=== PATIENT | female | born 1960 | race Hispanic/Latino ===

== ENCOUNTER 2025-10-04 05:57 | Inpatient (IN) | payer MEDICARE, MEDICAID ==
[2025-10-04] MEDS ORDERED: levETIRAcetam 500 MG (5 mL) VIAL ONE (06:04)
[2025-10-04 06:29] LABS: #Basophils 0.06 10x3/uL (0.0-0.2); #Eosinophils Less than 0.03 10x3/uL (0.0-0.7); #Monocytes 0.45 10x3/uL (0.11-0.59); #Neutrophils 12.41 10x3/uL (1.40-6.50); %Basophils 0.4 % (0.0-1.0); %Eosinophils 0.0 % (0.0-10.0); %Lymphocytes 7.1 % (21.0-51.0); %Monocytes 3.2 % (0.0-10.0); %Neutrophils 88.7 % (42.0-75.0); Hematocrit 33.9 % (36.0-47.0); Hemoglobin 11.1 g/dL (12.0-16.0); Mean Corpuscular Hemoglobin 31.9 pg (27.0-31.0); Mean Corpuscular Volume 97.4 fL (78.0-98.0); Platelet Count 247 10x3/uL (130-400); Red Blood Cell (RBC) Count 3.48 mill/uL (4.20-5.40); White Blood Cell (WBC) Count 14.01 10x3/uL (4.8-10.8)
[2025-10-04 06:43] LABS: ALT (SGPT) 45 U/L (Less than 34); AST (SGOT) 82 U/L (11-34); Albumin 3.3 g/dL (3.1-4.5); Alkaline Phosphatase 160 U/L (40-110); Anion Gap 17 mmol/L (10-20); BUN (Urea Nitrogen) 9 mg/dL (9.8-20.1); Bilirubin, Total 0.4 mg/dL (0.3-1.2); Calc. Creatinine Clearance 0 mL/min (70-130); Calcium 8.7 mg/dL (7.8-10.44); Carbon Dioxide 22 mmol/L (23-31); Chloride 96 mmol/L (98-107); Globulin 3.3 g/dL (2.4-3.5); Glucose 217 mg/dL (80-115); Potassium 4.7 mmol/L (3.5-5.1); Sodium 130 mmol/L (136-145)
[2025-10-04 06:46] LABS: Acetaminophen Less than 10 mcg/mL (Less than 10); Salicylate Less than 8.0 mg/dL (Less than 8.0)
[2025-10-04 06:47] LABS: CK (CPK) 26 U/L (29-168); Lipase 76 U/L (8-78)
[2025-10-04] MEDS ORDERED: Etomidate 40 MG (20 mL) VIAL ONE (06:54)
[2025-10-04] MEDS ORDERED: Rocuronium Bromide 10 MG/ML (10ML VIAL) ONE (06:54)
[2025-10-04] MEDS ORDERED: Digoxin 0.5 MG/2 ML AMP ONE (07:12)
[2025-10-04] MEDS ORDERED: Magnesium 2 GM/50 ML BAG (IN WATER) ONE (07:12)
[2025-10-04 07:28] LABS: Actual Bicarbonate (HCO3a) 24.0 mEq/L (22-28); Analyzer IN Cardio ER; Base Excess (BEa) 0.7 mEq/L (-2.0 to +3.0); CO2 Tension 33.5 mmHg (35.0-45.0); Calcium, Ionized (arterial) 1.06 mmol/L (1.12-1.30); Hematocrit-ABG 29 % (36.0-47.0); Hemoglobin (Hb) 9.8 g/dL (12.0-16.0); O2 Tension (PaO2), arterial 240.1 mmHg (> 80.0); Potassium - ABG Lab 4.08 mmol/L (3.70-5.30); pH, Arterial 7.473 (7.35-7.45)
[2025-10-04] MEDS ORDERED: Enoxaparin 60 MG (0.6 mL) SYRINGE ONE (07:32)
[2025-10-04] MEDS ORDERED: LevoFLOXacin 750 mg/D5W 150 ml Premix Bag ONE (07:37)
[2025-10-04] MEDS ORDERED: Cefepime 2 GM VIAL ONE (07:37)
[2025-10-04 07:43] LABS: Bacteria/HPF None Seen HPF (None Seen); CAUTI Indications for Culture Alt mental st,lethar; Glucose, Urine (Dipstick) 150 mg/dL (Negative); Leukocyte Negative Leu/uL (Negative); Protein, Urine (Dipstick) 20 mg/dL (Neg-Trace); RBC/HPF 0-3 HPF (0-3); Specific Gravity, Urine 1.011 (1.002-1.036); WBC/HPF 0-3 HPF (0-3)
[2025-10-04 07:44] LABS: Cocaine Metabolite Screen Negative (Negative); THC/Cannabinoid Screen Negative (Negative); Tricyclic Screen Negative (Negative); Urine Culture Reflex No No
[2025-10-04 08:10] LABS: Puncture Site Left Brachial artery
[2025-10-04] MEDS ORDERED: Ondansetron PF 4 MG/2 ML Vial IVP PRN (08:40)
[2025-10-04] MEDS: Famotidine/PF 20 mg/2ml Vial SLOW IVP SCH (10:53)
[2025-10-04] MEDS ORDERED: Ventilator Sedation Protocol 1 EACH FS SCH (11:30)
[2025-10-04] MEDS ORDERED: Propofol BOLUS 1,000 MG/100 ML VIAL IV PRN (11:45)
[2025-10-04] MEDS ORDERED: Fentanyl BOLUS 100 ML IVPB PRN (11:45)
[2025-10-04] MEDS ORDERED: Iopamidol-370 76% 500 ML MDV (1 ML CHARGE) ONE (13:38)
[2025-10-04] MEDS: levETIRAcetam 500 MG (5 mL) VIAL SLOW IVP SCH (17:57)
[2025-10-04] MEDS ORDERED: levETIRAcetam 500 MG (5 mL) VIAL SLOW IVP SCH (19:00)
[2025-10-04] MEDS: Mupirocin 1 GM TUBE NASAL DECOLONIZATION NASAL SCH (20:37)
[2025-10-05 04:44] LABS: ALT (SGPT) 24 U/L (Less than 34); AST (SGOT) 25 U/L (11-34); Albumin 2.1 g/dL (3.1-4.5); Alkaline Phosphatase 87 U/L (40-110); Anion Gap 12 mmol/L (10-20); BUN (Urea Nitrogen) 15 mg/dL (9.8-20.1); Bilirubin, Total 0.5 mg/dL (0.3-1.2); Calc. Creatinine Clearance 65 mL/min (70-130); Calcium 7.8 mg/dL (7.8-10.44); Carbon Dioxide 23 mmol/L (23-31); Chloride 104 mmol/L (98-107); Globulin 2.3 g/dL (2.4-3.5); Glucose 84 mg/dL (80-115); Potassium 3.7 mmol/L (3.5-5.1); Sodium 135 mmol/L (136-145)
[2025-10-05 06:09] LABS: #Basophils 0.03 10x3/uL (0.0-0.2); #Eosinophils 0.03 10x3/uL (0.0-0.7); #Monocytes 0.62 10x3/uL (0.11-0.59); #Neutrophils 5.46 10x3/uL (1.40-6.50); %Basophils 0.4 % (0.0-1.0); %Eosinophils 0.4 % (0.0-10.0); %Lymphocytes 14.7 % (21.0-51.0); %Monocytes 8.6 % (0.0-10.0); %Neutrophils 75.5 % (42.0-75.0); Hematocrit 24.8 % (36.0-47.0); Hemoglobin 8.1 g/dL (12.0-16.0); Mean Corpuscular Hemoglobin 31.9 pg (27.0-31.0); Mean Corpuscular Volume 97.6 fL (78.0-98.0); Platelet Count 183 10x3/uL (130-400); Red Blood Cell (RBC) Count 2.54 mill/uL (4.20-5.40); White Blood Cell (WBC) Count 7.23 10x3/uL (4.8-10.8)
[2025-10-05 06:21] LABS: ALT (SGPT) 23 U/L (Less than 34); AST (SGOT) 30 U/L (11-34); Albumin 2.2 g/dL (3.1-4.5); Alkaline Phosphatase 90 U/L (40-110); Anion Gap 11 mmol/L (10-20); BUN (Urea Nitrogen) 15 mg/dL (9.8-20.1); Bilirubin, Total 0.6 mg/dL (0.3-1.2); Calc. Creatinine Clearance 68 mL/min (70-130); Calcium 7.8 mg/dL (7.8-10.44); Carbon Dioxide 23 mmol/L (23-31); Chloride 104 mmol/L (98-107); Globulin 2.2 g/dL (2.4-3.5); Glucose 83 mg/dL (80-115); Potassium 3.8 mmol/L (3.5-5.1); Sodium 134 mmol/L (136-145)
[2025-10-05 08:12] LABS: Actual Bicarbonate (HCO3a) 24.1 mEq/L (22-28); Base Excess (BEa) 0.1 mEq/L (-2.0 to +3.0); CO2 Tension 36.1 mmHg (35.0-45.0); Calcium, Ionized (arterial) 1.12 mmol/L (1.12-1.30); Hematocrit-ABG 26 % (36.0-47.0); Hemoglobin (Hb) 8.7 g/dL (12.0-16.0); O2 Tension (PaO2), arterial 82.8 mmHg (> 80.0); Potassium - ABG Lab 3.68 mmol/L (3.70-5.30); pH, Arterial 7.442 (7.35-7.45)
[2025-10-05 08:13] LABS: Puncture Site Right Brachial art
[2025-10-05 08:14] LABS: ALV-art Gradient 157.275 mmHg (0-20)
[2025-10-05] MEDS: FLU (Fluarix Triv) 25-26 (6MOS UP)/PF 45 MCG/0.5 ML Syringe IM ONE (09:37)
[2025-10-05] MEDS: Scopolamine 1 mg/72 hour Patch TD SCH (14:48)
[2025-10-05 22:03] LABS: Influenza A by NAA Not Detected (NotDetected); Influenza B by NAA Not Detected (NotDetected); RSV by NAA Not Detected (NotDetected); SARS-CoV-2 NAA Rapid Test Not Detected (NotDetected)
[2025-10-06 04:02] LABS: #Basophils 0.03 10x3/uL (0.0-0.2); #Eosinophils 0.07 10x3/uL (0.0-0.7); #Monocytes 0.46 10x3/uL (0.11-0.59); #Neutrophils 3.25 10x3/uL (1.40-6.50); %Basophils 0.6 % (0.0-1.0); %Eosinophils 1.5 % (0.0-10.0); %Lymphocytes 18.6 % (21.0-51.0); %Monocytes 9.7 % (0.0-10.0); %Neutrophils 69.0 % (42.0-75.0); Hematocrit 23.4 % (36.0-47.0); Hemoglobin 7.9 g/dL (12.0-16.0); Mean Corpuscular Hemoglobin 32.5 pg (27.0-31.0); Mean Corpuscular Volume 96.3 fL (78.0-98.0); Platelet Count 145 10x3/uL (130-400); Red Blood Cell (RBC) Count 2.43 mill/uL (4.20-5.40); White Blood Cell (WBC) Count 4.72 10x3/uL (4.8-10.8)
[2025-10-06 04:23] LABS: Anion Gap 9 mmol/L (10-20); BUN (Urea Nitrogen) 13 mg/dL (9.8-20.1); Calc. Creatinine Clearance 93 mL/min (70-130); Calcium 8.0 mg/dL (7.8-10.44); Carbon Dioxide 23 mmol/L (23-31); Chloride 107 mmol/L (98-107); Glucose 111 mg/dL (80-115); Potassium 3.5 mmol/L (3.5-5.1); Sodium 135 mmol/L (136-145)
[2025-10-06 05:56] VITALS: BMI 23.3
[2025-10-06 06:57] LABS: Actual Bicarbonate (HCO3a) 24.0 mEq/L (22-28); Base Excess (BEa) -0.2 mEq/L (-2.0 to +3.0); CO2 Tension 37.3 mmHg (35.0-45.0); Calcium, Ionized (arterial) 1.15 mmol/L (1.12-1.30); Hematocrit-ABG 25 % (36.0-47.0); Hemoglobin (Hb) 8.5 g/dL (12.0-16.0); O2 Tension (PaO2), arterial 102.6 mmHg (> 80.0); Potassium - ABG Lab 3.63 mmol/L (3.70-5.30); pH, Arterial 7.427 (7.35-7.45)
[2025-10-06 07:06] LABS: ALV-art Gradient 135.975 mmHg (0-20); Puncture Site Right Brachial art
[2025-10-07 05:17] LABS: #Basophils Less than 0.03 10x3/uL (0.0-0.2); #Eosinophils 0.03 10x3/uL (0.0-0.7); #Monocytes 0.53 10x3/uL (0.11-0.59); #Neutrophils 3.53 10x3/uL (1.40-6.50); %Basophils 0.4 % (0.0-1.0); %Eosinophils 0.6 % (0.0-10.0); %Lymphocytes 14.3 % (21.0-51.0); %Monocytes 11.0 % (0.0-10.0); %Neutrophils 73.1 % (42.0-75.0); Hematocrit 25.0 % (36.0-47.0); Hemoglobin 8.1 g/dL (12.0-16.0); Mean Corpuscular Hemoglobin 31.3 pg (27.0-31.0); Mean Corpuscular Volume 96.5 fL (78.0-98.0); Platelet Count 147 10x3/uL (130-400); Red Blood Cell (RBC) Count 2.59 mill/uL (4.20-5.40); White Blood Cell (WBC) Count 4.83 10x3/uL (4.8-10.8)
[2025-10-07 05:20] LABS: Anion Gap 14 mmol/L (10-20); BUN (Urea Nitrogen) 8 mg/dL (9.8-20.1); Calc. Creatinine Clearance 102 mL/min (70-130); Calcium 7.9 mg/dL (7.8-10.44); Carbon Dioxide 23 mmol/L (23-31); Chloride 101 mmol/L (98-107); Glucose 72 mg/dL (80-115); Potassium 3.2 mmol/L (3.5-5.1); Sodium 135 mmol/L (136-145)
[2025-10-07] MEDS ORDERED: Electrolyte Replacement Protocol 1 EACH FS SCH (07:30)
[2025-10-07] MEDS ORDERED: PHOS-NAK 1 PKT PACK PO PRN (07:30)
[2025-10-07] MEDS ORDERED: Magnesium 2 GM/50 ML(in water) 2 GM in Premix 1 BAG IVPB PRN (07:30)
[2025-10-07] MEDS: Potassium Chloride 20 MEQ in Premix 1 BAG IVPB PRN (07:37)
[2025-10-07] MEDS: Transdermal Patch Removal TOP SCH (07:39)
[2025-10-07] MEDS: Acetaminophen/Codeine 30-300mg Tablet PO PRN (09:46)
[2025-10-08 05:36] LABS: #Basophils Less than 0.03 10x3/uL (0.0-0.2); #Eosinophils 0.06 10x3/uL (0.0-0.7); #Monocytes 0.50 10x3/uL (0.11-0.59); #Neutrophils 2.95 10x3/uL (1.40-6.50); %Basophils 0.5 % (0.0-1.0); %Eosinophils 1.4 % (0.0-10.0); %Lymphocytes 18.0 % (21.0-51.0); %Monocytes 11.5 % (0.0-10.0); %Neutrophils 68.1 % (42.0-75.0); Hematocrit 25.7 % (36.0-47.0); Hemoglobin 8.6 g/dL (12.0-16.0); Mean Corpuscular Hemoglobin 31.9 pg (27.0-31.0); Mean Corpuscular Volume 95.2 fL (78.0-98.0); Platelet Count 146 10x3/uL (130-400); Red Blood Cell (RBC) Count 2.70 mill/uL (4.20-5.40); White Blood Cell (WBC) Count 4.33 10x3/uL (4.8-10.8)
[2025-10-08 05:51] LABS: Anion Gap 11 mmol/L (10-20); BUN (Urea Nitrogen) 5 mg/dL (9.8-20.1); Calc. Creatinine Clearance 93 mL/min (70-130); Calcium 8.2 mg/dL (7.8-10.44); Carbon Dioxide 25 mmol/L (23-31); Chloride 106 mmol/L (98-107); Glucose 94 mg/dL (80-115); Potassium 3.6 mmol/L (3.5-5.1); Sodium 138 mmol/L (136-145)
[2025-10-08] MEDS ORDERED: levETIRAcetam 500 MG TAB PO SCH (09:00)
[2025-10-08] MEDS: Losartan 25 MG TAB PO SCH (09:13)
[2025-10-08 09:14] VITALS: BMI 22.9
[2025-10-08] MEDS: diphenhydrAMINE 50 MG/ML VIAL IVP SCH (12:07)
[2025-10-08] MEDS: levETIRAcetam 500 MG TAB PO SCH (17:27)
[2025-10-09 05:25] LABS: #Basophils 0.04 10x3/uL (0.0-0.2); #Eosinophils 0.08 10x3/uL (0.0-0.7); #Monocytes 0.48 10x3/uL (0.11-0.59); #Neutrophils 2.26 10x3/uL (1.40-6.50); %Basophils 1.0 % (0.0-1.0); %Eosinophils 2.0 % (0.0-10.0); %Lymphocytes 26.8 % (21.0-51.0); %Monocytes 12.2 % (0.0-10.0); %Neutrophils 57.7 % (42.0-75.0); Hematocrit 25.9 % (36.0-47.0); Hemoglobin 8.5 g/dL (12.0-16.0); Mean Corpuscular Hemoglobin 31.4 pg (27.0-31.0); Mean Corpuscular Volume 95.6 fL (78.0-98.0); Platelet Count 138 10x3/uL (130-400); Red Blood Cell (RBC) Count 2.71 mill/uL (4.20-5.40); White Blood Cell (WBC) Count 3.92 10x3/uL (4.8-10.8)
[2025-10-09 05:28] LABS: Anion Gap 12 mmol/L (10-20); BUN (Urea Nitrogen) 4 mg/dL (9.8-20.1); Calc. Creatinine Clearance 100 mL/min (70-130); Calcium 8.6 mg/dL (7.8-10.44); Carbon Dioxide 25 mmol/L (23-31); Chloride 105 mmol/L (98-107); Glucose 91 mg/dL (80-115); Potassium 3.7 mmol/L (3.5-5.1); Sodium 138 mmol/L (136-145)
[2025-10-09 08:17] VITALS: BP 170/78; TEMP 98.2
== END 2025-10-09 11:14 | disposition home or self-care (01) | DRG 100 ==
LOC: ERS 05:57 → CCU 08:30 → T4-A 10-07 15:59
PROVIDERS: ADMIT Internal Medicine; ATTEND Hospitalist
PROC: XX20X89 Monitoring of Brain Electrical Activity, Computer-aided Detection and Notification, New Technology Group 9 (ICD-10-PCS; principal; 2025-10-04)
PROC: 5A1945Z Respiratory Ventilation, 24-96 Consecutive Hours (ICD-10-PCS; 2025-10-04)
PROC: 3E03329 Introduction of Other Anti-infective into Peripheral Vein, Percutaneous Approach (ICD-10-PCS; 2025-10-04)
PROC: 3E02340 Introduction of Influenza Vaccine into Muscle, Percutaneous Approach (ICD-10-PCS; 2025-10-05)
DX: G40.901 Epilepsy, unspecified, not intractable, with status epilepticus (principal); G93.41 Metabolic encephalopathy; J69.0 Pneumonitis due to inhalation of food and vomit; J96.00 Acute respiratory failure, unspecified whether with hypoxia or hypercapnia; E87.1 Hypo-osmolality and hyponatremia; I48.91 Unspecified atrial fibrillation; Z79.899 Other long term (current) drug therapy; I10 Essential (primary) hypertension; Z98.890 Other specified postprocedural states; Z72.0 Tobacco use; D72.829 Elevated white blood cell count, unspecified; G72.9 Myopathy, unspecified; J44.9 Chronic obstructive pulmonary disease, unspecified; E87.6 Hypokalemia; S32.019D Unspecified fracture of first lumbar vertebra, subsequent encounter for fracture with routine healing; S06.2XAD Diffuse traumatic brain injury with loss of consciousness status unknown, subsequent encounter; S02.40ED Zygomatic fracture, right side, subsequent encounter for fracture with routine healing; Z23 Encounter for immunization
CPT/HCPCS: 31500; 36415; 36556; 36600; 51702; 70450; 70496; 70498; 70553; 71045; 71260; 74177; 76376; 80048; 80053; 80306; 80307; 81001; 82140; 82550; 82805; 83605; 83690; 83880; 84146; 84443; 84484; 85025; 86850; 86900; 86901; 87086; 87637; 90656; 93005; 93010; 94002; 94003; 96365; 96366; 96367; 96368; 96375; 99292; C9254; J0692; J1160; J1200; J1308; J1650; J1953; J1956; J2060; J2543; J2560; J2704; J3475; J3480; J7030; Q9967